=== PATIENT | female | born 2000 | race Caucasian/White ===

== ENCOUNTER 2023-05-06 08:06 | Emergency (ER) | payer MEDICAID, OTHER ==
[2023-05-06] MEDS ORDERED: methylPREDNISolone Sodium Succinate 125 MG/2 ML SDV IM ONE (08:55)
[2023-05-06] MEDS ORDERED: HYDROmorphone 0.5 MG/0.5 ML Syringe IM ONE (08:55)
[2023-05-06 08:56] VITALS: BP 140/87; PULSE 101
[2023-05-06 09:08] LABS: BASOPHILS ABSOLUTE AUTO 0.07 K/uL (0.00-0.10); BASOPHILS PERCENT AUTO 0.6 % (0.1-1.3); EOSINOPHILS ABSOLUTE AUTO 0.37 K/uL (0.00-0.40); EOSINOPHILS PERCENT AUTO 3.1 % (0.0-5.4); HEMATOCRIT 38.3 % (34.3-46.0); IMMATURE GRAN ABSOLUTE AUTO 0.04 K/uL (0.00-0.23); IMMATURE GRAN PERCENT AUTO 0.3 % (0.0-0.7); LYMPHOCYTES ABSOLUTE AUTO 4.41 K/uL (0.8-3.3); LYMPHOCYTES PERCENT AUTO 37.3 % (11.4-47.7); MEAN CORPUSCULAR HEMOGLOBIN 27.3 pg (31.6-35.5); MEAN CORPUSCULAR HGB CONC 33.9 g/dL (31.6-35.5); MEAN CORPUSCULAR VOLUME 80.3 fL (81.4-99.0); MONOCYTES ABSOLUTE AUTO 0.89 K/uL (0.20-0.90); MONOCYTES PERCENT AUTO 7.5 % (3.3-12.6); NEUTROPHILS ABSOLUTE AUTO 6.03 K/uL (1.0-7.6); NEUTROPHILS PERCENT AUTO 51.2 % (40.0-78.1); PLATELET COUNT,PLT 335 K/uL (130-375); RED BLOOD CELL COUNT 4.77 M/uL (3.77-5.24); WHITE BLOOD CELL COUNT,WBC 11.8 K/uL (3.2-11.0)
[2023-05-06] MEDS ORDERED: Sodium Chloride 0.9% 10 ML Syringe FLUSH PRN (09:47)
[2023-05-06] MEDS ORDERED: Vancomycin 2.5 GM in Sodium Chloride 0.9% 500 ML IV ONE (09:48)
[2023-05-06] MEDS ORDERED: cefTRIAXone 2 GM in Sodium Chloride 0.9% 50 ML IV SCH (10:00)
[2023-05-06 10:11] LABS: APPEARANCE,URINE CLOUDY (CLEAR); BILIRUBIN,URINE NEGATIVE (NEGATIVE); COLOR,URINE YELLOW (YELLOW); GLUCOSE,URINE NEGATIVE (NEGATIVE); KETONES,URINE NEGATIVE (NEGATIVE); LEUKOCYTE ESTERASE,URINE NEGATIVE (NEGATIVE); NITRITE,URINE NEGATIVE (NEGATIVE); OCCULT BLOOD,URINE NEGATIVE (NEGATIVE); PH,URINE 5.5 (5.0-8.0); PROTEIN,URINE NEGATIVE (NEGATIVE); UROBILINOGEN,URINE 0.2 EU/dL (0.2-1.0)
[2023-05-06 10:16] LABS: AMORPHOUS SEDIMENT,URINE NOT SEEN; BACTERIA,URINE MODERATE; EPITHELIAL CELLS,URINE MODERATE; MUCUS,URINE MODERATE; RBC,URINE 0-5 (0-5); WBC,URINE 0-5 (0-5)
[2023-05-06 11:14] LABS: CREATININE 0.7 mg/dL (0.6-1.0); EST CRCL DRUG DOSING (CG) 110.7 mL/min
[2023-05-06] MEDS ORDERED: HYDROmorphone 2 MG Tab PO ONE (11:30)
== END 2023-05-06 14:05 | disposition home or self-care (01) ==
LOC: JP.ED 08:06
DX: M54.50 Low back pain, unspecified (principal); G89.29 Other chronic pain; R79.82 Elevated C-reactive protein (CRP); Z79.899 Other long term (current) drug therapy
CPT/HCPCS: 36415; 81001; 82565; 85025; 86140; 87040; 87086; 96365; 96366; 96367; 96372; 99283; A9270; J0696; J1170; J2930; J3370; J3490; J7040

== ENCOUNTER 2023-05-07 11:55 | Emergency (ER) | payer OTHER ==
[2023-05-07] MEDS ORDERED: HYDROmorphone 1 MG/ML Syringe IM ONE (12:06)
[2023-05-07 12:56] VITALS: BP 160/85; PULSE 98
== END 2023-05-07 13:14 | disposition home or self-care (01) ==
LOC: JP.ED 11:55
DX: M54.50 Low back pain, unspecified (principal); G89.29 Other chronic pain; J45.909 Unspecified asthma, uncomplicated; Z79.899 Other long term (current) drug therapy; Z79.2 Long term (current) use of antibiotics
CPT/HCPCS: 96372; 99283; J1170

== ENCOUNTER 2023-05-09 12:02 | Emergency (ER) | payer OTHER ==
[2023-05-09 12:21] VITALS: BP 120/78; PULSE 100
[2023-05-09 13:19] LABS: CALCIUM 8.2 mg/dL (8.5-10.1); CREATININE 0.7 mg/dL (0.6-1.0); EST CRCL DRUG DOSING (CG) 110.7 mL/min
== END 2023-05-09 14:12 | disposition home or self-care (01) ==
LOC: JP.ED 12:02
DX: R60.0 Localized edema (principal); E66.9 Obesity, unspecified; Z79.899 Other long term (current) drug therapy; Z86.16 Personal history of COVID-19; Z68.41 Body mass index [BMI] 40.0-44.9, adult
CPT/HCPCS: 36415; 80048; 85379; 99284